=== PATIENT | male | born 1990 | race Caucasian/White ===

== ENCOUNTER 2018-07-22 18:58 | Emergency (ER) | payer OTHER ==
[~2018-07-22] VITALS: Ht 180.3 cm; Wt 102.1 kg
[2018-07-22 19:38] VITALS: BP_SYST 135
[2018-07-22 21:26] VITALS: BP_SYST 135
[2018-07-22] MEDS ORDERED: IBUPROFEN 800 MG TABLET PO ONE (21:30)
== END 2018-07-22 21:26 | disposition home or self-care (01) ==
LOC: SED 18:58
DX: H66.92 Otitis media, unspecified, left ear (principal); R50.9 Fever, unspecified; F17.210 Nicotine dependence, cigarettes, uncomplicated
CPT/HCPCS: 99283